=== PATIENT | male | born 1935 | race Asian ===

== ENCOUNTER 2018-05-02 06:22 | Day surgery (SDC) | payer OTHER ==
[~2018-05-02] VITALS: Ht 162.6 cm; Wt 44.0 kg
[2018-05-02] MEDS ORDERED: LIDOCAINE 4% 50 ML SOLUTION TP ONE (06:23)
[2018-05-02] MEDS ORDERED: ALBUTEROL SULFATE 2.5 MG/0.5 ML NEB SOLUTION NEB ONE (06:23)
[2018-05-02] MEDS ORDERED: LIDOCAINE 2% 30 ML JELLY TP ONE (06:23)
[2018-05-02] MEDS ORDERED: BENZOCAINE 20% 50 MCG/SPRAY 57 GM TP ONE (06:23)
[2018-05-02] MEDS ORDERED: SODIUM CHLORIDE 0.9% 1,000 ML IV ONE ×2 (06:30→06:47)
[2018-05-02] MEDS ORDERED: FAMO20 PO (07:07)
[2018-05-02] MEDS ORDERED: FINA5TAB41 PO (07:07)
[2018-05-02] MEDS ORDERED: ALBU8.5H8 IH (07:07)
[2018-05-02] MEDS ORDERED: MONT10TA21 PO (07:07)
[2018-05-02] MEDS ORDERED: COMBISP IH (07:07)
[2018-05-02] MEDS ORDERED: MOME13HF IH (07:07)
[2018-05-02] MEDS ORDERED: TAMS0.4C32 PO (07:07)
[2018-05-02] MEDS ORDERED: EPINEPHrine 1:10,000 [1 MG/10 ML] SYRINGE ONE (07:58)
[2018-05-02] MEDS ORDERED: MIDAZOLAM HCL 2 MG/2 ML VIAL ONE (07:58)
[2018-05-02] MEDS ORDERED: FentaNYL CITRATE-PF 100 MCG/2 ML VIAL ONE (07:58)
[2018-05-02] MEDS ORDERED: FLUMAZENIL 0.1 MG/ML 5 ML VIAL IVP ONE (07:59)
[2018-05-02] MEDS ORDERED: DiphenhydrAMINE HCL 50 MG/ML VIAL ONE (07:59)
[2018-05-02] MEDS ORDERED: SODIUM TETRADECYL SULFATE 3% 60 MG/2 ML VIAL IVP ONE (07:59)
[2018-05-02] MEDS ORDERED: NALOXONE HCL 0.4 MG/ML VIAL ONE (07:59)
[2018-05-02] MEDS ORDERED: ATROPINE SULFATE 0.1 MG/ML 10 ML SYRINGE IVP ONE (07:59)
[2018-05-02] MEDS ORDERED: MethylPREDNISolone SOD SUCC 125 MG/2 ML VIAL IVP ONE (08:15)
[2018-05-02] MEDS ORDERED: OXYGEN THERAPY IH SCH (20:00)
== END 2018-05-02 09:50 | disposition home or self-care (01) ==
LOC: SURGERY 06:22
PROVIDERS: ATTEND Internal Medicine Critical Care Medicine
DX: J38.4 Edema of larynx (principal); B37.0 Candidal stomatitis; J98.09 Other diseases of bronchus, not elsewhere classified; J44.9 Chronic obstructive pulmonary disease, unspecified; Z87.891 Personal history of nicotine dependence; Z90.49 Acquired absence of other specified parts of digestive tract; Z85.038 Personal history of other malignant neoplasm of large intestine; Z98.890 Other specified postprocedural states; Z79.899 Other long term (current) drug therapy
CPT/HCPCS: 31623; 31624; 71045; 87015; 87070; 87205; 87206; 87220; 88108; 88312; J2250; J2930; J3010; J7030; J0171; J0461; J1200; J2310; J3490